=== PATIENT | male | born 1945 | race Caucasian/White ===

== ENCOUNTER 2024-04-19 00:14 | Emergency (ER) | payer MEDICARE, MEDICAID ==
[2024-04-19] MEDS ORDERED: traMADol HCl 50 MG TAB ONE (01:12)
[2024-04-19] MEDS ORDERED: Lidocaine 1% w/Epinephrine 1:100K 20 ML VIAL ONE (01:28)
[2024-04-19] MEDS ORDERED: Bacitracin 1 PK ONE (01:40)
[2024-04-19] MEDS ORDERED: Boostrix 0.5 ML (Tdap) VIAL (>/=7 yrs of age) ONE (01:40)
== END 2024-04-19 03:40 ==
LOC: NAV ERS 00:14
DX: S52.571A Other intraarticular fracture of lower end of right radius, initial encounter for closed fracture (principal); S52.201A Unspecified fracture of shaft of right ulna, initial encounter for closed fracture; I10 Essential (primary) hypertension; E78.5 Hyperlipidemia, unspecified; Z23 Encounter for immunization; Z87.891 Personal history of nicotine dependence; Z86.73 Personal history of transient ischemic attack (TIA), and cerebral infarction without residual deficits; W19.XXXA Unspecified fall, initial encounter; Y92.129 Unspecified place in nursing home as the place of occurrence of the external cause
CPT/HCPCS: 29125; 70450; 72125; 90471; 90715

== ENCOUNTER 2024-11-01 09:48 | Emergency (ER) | payer MEDICARE, MEDICAID | END 2024-11-01 10:20 | LOC: NAV ERS 09:48 | DX: R09.02 Hypoxemia (principal); I10 Essential (primary) hypertension; Z86.73 Personal history of transient ischemic attack (TIA), and cerebral infarction without residual deficits; Z87.891 Personal history of nicotine dependence ==